=== PATIENT | female | born 1950 | race American Indian/Alaskan Native ===

== ENCOUNTER 2018-12-21 05:55 | Day surgery (SDC) | payer MEDICARE, OTHER ==
[2018-12-21] MEDS ORDERED: ECOTRIN PO ONE (06:21)
[2018-12-21] MEDS ORDERED: NACL 0.9% 500 ML 500 ML IV SCH (07:00)
[2018-12-21 08:23] LABS: Eosinophils % (Auto) 1.2 % (0.0-4.3); Hematocrit 39.2 % (30.3-42.9); Hemoglobin 12.9 gm/dl (10.1-14.3); Lymphocytes # (Auto) 1.3 K/mm3 (1.2-5.4); Lymphocytes % (Auto) 39.5 % (13.4-35.0); Mean Corpuscular HGB Conc 33 % (30-34); Mean Corpuscular Volume 89 fl (79-97); Monocytes # (Auto) 0.2 K/mm3 (0.0-0.8); Monocytes % (Auto) 6.2 % (0.0-7.3); Platelet Count 133 K/mm3 (140-440); Red Blood Count 4.42 M/mm3 (3.65-5.03)
[2018-12-21 08:27] LABS: INR 0.97 (0.87-1.13)
[2018-12-21 08:30] LABS: BUN/Creatinine Ratio 23; Blood Urea Nitrogen 23 mg/dL (7-17); Calcium 9.6 mg/dL (8.4-10.2); Hemolysis Index 18
[2018-12-21] MEDS ORDERED: VERSED ONE (10:06)
[2018-12-21] MEDS ORDERED: HEPARIN/NS 5000 UNIT/500ML(CATH LAB) 1,000 ML IR ONE (10:06)
[2018-12-21] MEDS ORDERED: SUBLIMAZE ONE (10:06)
[2018-12-21] MEDS ORDERED: XYLOCAINE 2% INFILTRATI ONE (10:06)
[2018-12-21] MEDS ORDERED: HEPARIN 10,000 UNITS/10 ML ONE (10:06)
[2018-12-21] MEDS ORDERED: CALAN ONE (10:06)
[2018-12-21] MEDS ORDERED: NITROGLYCERIN SYRINGE 3 ML ONE (10:07)
[2018-12-21] MEDS ORDERED: ULTRAM PO PRN (10:54)
--- NOTE | 2018-12-21 10:57 | Short Stay Summary ---
Short Stay Documentation Date of service: 12/21/18 - History H&P: obtained from office - Allergies and Medications Current Medications: Allergies ANABOLIC STEROIDS Allergy (Uncoded 12/05/18 08:30) Hives VERALYN Allergy (Uncoded 12/05/18 08:30) Hives Home Medications Medication Instructions Recorded Confirmed Last Taken Type Anastrozole [Arimidex] 1 mg PO DAILY 12/21/18 12/21/18 12/20/18 History Aspirin [Lo-Dose Aspirin EC] 81 mg PO DAILY 12/21/18 12/21/18 12/20/18 History Brimonidine/Timolol 0.2-0.5% 1 drops OP Q12H 12/21/18 12/21/18 12/20/18 History [Combigan 0.2-0.5%] Calcium Carbonate [Calcium] 600 mg PO DAILY 12/21/18 12/21/18 12/20/18 History Carvedilol [Coreg] 25 mg PO BID 12/21/18 12/21/18 12/21/18 05:00 History Cholecalciferol (Vitamin D3) 5,000 unit PO DAILY 12/21/18 12/21/18 12/20/18 History [Vitamin D3] Diclofenac Sodium 75 mg PO BID 12/21/18 12/21/18 12/20/18 History Fluticasone [Flonase] 2 spray NS QAM 12/21/18 12/21/18 12/20/18 History Hydralazine HCl 50 mg PO BID 12/21/18 12/21/18 12/21/18 05:00 History Multivit-Min/Iron/Folic Acid/K 1 each PO DAILY 12/21/18 12/21/18 12/20/18 History [Multi-Day Plus Minerals Tablet] Olmesartan Medoxomil [Benicar] 40 mg PO DAILY 12/21/18 12/21/18 12/21/18 05:00 History Rosuvastatin (Nf) [Crestor] 20 mg PO DAILY 12/21/18 12/21/18 12/20/18 History Active Medications Sodium Chloride (Nacl 0.9% 500 Ml) 500 mls @ 50 mls/hr IV DIRECT HARJIT Stop: 12/21/18 16:59 Last Admin: 12/21/18 08:18 Dose: 50 mls/hr Documented by: - Brief post op/procedure progress note Date of procedure: 12/21/18 Pre-op diagnosis: chest pain Post-op diagnosis: other (normal coronaries and normal lv function) Procedure: see report Anesthesia: local Estimated blood loss: none Pathology: none - Disposition Condition at discharge: Good Disposition: DC-01 TO HOME OR SELFCARE - Discharge Diagnoses (1) Chest pain Status: Chronic Qualifiers: Chest pain type: unspecified Qualified Code(s): R07.9 - Chest pain, unspecified (2) Abnormal cardiovascular stress test Status: Resolved (3) Morbid obesity Status: Chronic (4) Hypertension Status: Chronic Qualifiers: Hypertension type: essential hypertension Qualified Code(s): I10 - Essential (primary) hypertension Short Stay Discharge Plan Activity: advance as tolerated Diet: low fat, low cholesterol Wound: keep clean and dry Follow up with: CARITO STERN MD [Other] - 7 Days
--- NOTE | 2018-12-21 11:04 | Cardiac Catherization Report ---
LEFT HEART CATHETERIZATION ORDERING PHYSICIAN: Brady Love MD CLINICAL INFORMATION: This is a 68-year-old female with obesity, hypertension, had abnormal stress test, apical ischemia, and so left heart catheterization was performed with moderate sedation, 1 mg Versed, 50 mcg fentanyl. Total sedation time was 12 minutes, started at 10:23 a.m., finished at 10:35 a.m. Left heart catheterization performed via the right radial artery, sterile technique, local anesthesia, 6-Mosotho radial sheath inserted. Left system engaged with JL3.5 catheter. Left main is large and patent, bifurcates into large LAD that is patent from proximally and distally. Small diagonal is patent. Small ramus is patent. Circumflex is a large caliber vessel, moderate tortuosity. OM1 and OM2, OM3 are [id number] caliber vessels that are patent. RCA is a large dominant vessel, engaged with JR4 catheter, patent from proximally and distally. PDA and PLV are medium caliber vessels that are patent. LV gram done in LENNY and MACIAS view shows normal LV function, EF 55-60%, LVEDP 17 mmHg, LV is 162 mmHg. Aortic is 158/65 mmHg. No significant gradient across the aortic valve on pullback. 5-Mosotho catheters all taken over guidewire, 6-Mosotho radial sheath was discontinued. Radial band applied. No hematoma, no bleeding. SUMMARY: Normal coronaries, right dominant system, large epicardial vessels, normal LV function. Continue risk factor modification. Discussed this in detail with the patient and the patient's family. JOB# [id number] DOROTHY/SHALOM SELBY
[2018-12-21 12:58] VITALS: BP 178/81
== END 2018-12-21 13:20 | disposition home or self-care (01) ==
LOC: CATHLABREC 05:55
PROVIDERS: ATTEND Internal Medicine
DX: I10 Essential (primary) hypertension (principal); E66.9 Obesity, unspecified; R94.39 Abnormal result of other cardiovascular function study; E66.01 Morbid (severe) obesity due to excess calories; H40.9 Unspecified glaucoma; M19.90 Unspecified osteoarthritis, unspecified site; E78.00 Pure hypercholesterolemia, unspecified; Z85.3 Personal history of malignant neoplasm of breast; Z98.51 Tubal ligation status; Z98.890 Other specified postprocedural states; Z79.01 Long term (current) use of anticoagulants; Z79.899 Other long term (current) drug therapy; Z79.82 Long term (current) use of aspirin; Z68.36 Body mass index [BMI] 36.0-36.9, adult; Z85.89 Personal history of malignant neoplasm of other organs and systems; Z88.8 Allergy status to other drugs, medicaments and biological substances; Z86.73 Personal history of transient ischemic attack (TIA), and cerebral infarction without residual deficits
CPT/HCPCS: 36415; 80048; 83036; 85025; 85610; 93005; 93010; 93458; 99156; C1894; J1644; J2250; J3010; J7040; Q9967